=== PATIENT | female | born 1990 | race Caucasian/White ===

== ENCOUNTER 2017-08-18 08:05 | Emergency (ER) | payer BC ==
[~2017-08-18] VITALS: Ht 157.5 cm; Wt 96.3 kg
[2017-08-18 10:45] VITALS: BP 121/79
== END 2017-08-18 10:45 | disposition home or self-care (01) ==
LOC: ED 08:05
DX: K02.9 Dental caries, unspecified (principal)
CPT/HCPCS: Q0162

== ENCOUNTER 2017-09-07 21:10 | Emergency (ER) | payer BC ==
[2017-09-07 23:42] VITALS: BP 134/99
== END 2017-09-07 23:42 | disposition home or self-care (01) ==
LOC: ED 21:10
DX: R25.2 Cramp and spasm (principal); Z88.0 Allergy status to penicillin
CPT/HCPCS: J1885